=== PATIENT | female | born 1960 | race Caucasian/White ===

== ENCOUNTER → 2020-08-11 | Outpatient (CLI) | payer BC ==
--- NOTE | 2020-08-11 08:19 | RAD ---
EXAMINATION: CT abdomen and pelvis without IV contrast. INDICATION:60 years, Female, gross hematuria onset yesterday, abdominal discomfort.. TECHNIQUE: Axial CT images of the abdomen and pelvis were obtained. Coronal and sagittal reformatted performed. COMPARISON: None. Exposure: One or more of the following individualized dose reduction techniques were utilized for thi s examination: 1. Automated exposure control 2. Adjustment of the mA and/or kV according to patient size 3. Use of iterative reconstruction technique. FINDINGS: LOWER CHEST: Unremarkable ABDOMEN/PELVIS: Within limitation of noncontrast exam, Subcentimeter hypodensity in the left hepatic lobe, small to characterize. Diffuse hepatic steatosis with multifocal areas of fatty sparing adjacent to the gallbladder. Unremarkable gallbladder, biliary ducts, pancreas and adrenals. There is 0.8 cm calculus in the right renal pelvis without upstream di lation. No hydronephrosis in either kidney. Increased urine density within the urinary bladder, the [place] unit of the urine measures 36. Few sigmoid diverticulosis without diverticulitis. Normal appendix. Normal caliber abdominal aorta. N o pneumoperitoneum or ascites. No lymphadenopathy in the abdomen or pelvis by size criteria. Nonspeci fic nonenlarged retroperitoneal and pelvic lymph nodes, likely reactive. Unremarkable uterus. No susp icious adnexal masses. MUSCULOSKELETAL: Intraosseous hemangioma at L3 vertebral body. Small fat-containing umbilical hernia. No acute osseous process. IMPRESSION: 1. Mildly increased urine density within the urinary bladder, likely secondary to known hematuria. 2. Right renal pelvic 8mm nonobstructing calculus. No hydronephrosis in either kidney. 3. Other chronic/incidental findings, as described above. Electronically signed by: Eric Nielson MD (08/11/2020 8:17 AM) [id number]
== END ==
LOC: RAD 07:45
PROVIDERS: ATTEND Nurse Practitioner Family
DX: K57.30 Diverticulosis of large intestine without perforation or abscess without bleeding (principal); R31.0 Gross hematuria; K76.0 Fatty (change of) liver, not elsewhere classified
CPT/HCPCS: 74176

== ENCOUNTER → 2020-08-20 | Outpatient (CLI) | payer BC ==
--- NOTE | 2020-08-20 11:49 | RAD ---
Study: XR ABDOMEN 1V Indication: Right kidney stone. Comparison: CT abdomen/pelvis 08/11/2020 Findings: Redemonstrated 8 mm stone projecting at the expected location of the right renal pelvis. No stone is identified on the left. Several pelvic phleboliths. The bowel gas pattern is nonobstructive. Impression: No apparent change in size or location of an 8 mm stone within the right renal pelvis. Electronically signed by: ALEJANDRO ARMENTA MD (08/20/2020 11:47 AM) [facility]
== END ==
LOC: DXRAD 10:42
PROVIDERS: ATTEND Nurse Practitioner Family
DX: N20.0 Calculus of kidney (principal)
CPT/HCPCS: 74018

== ENCOUNTER → 2020-09-15 | Outpatient (CLI) | payer BC ==
--- NOTE | 2020-09-15 10:55 | RAD ---
EXAM: XR ABDOMEN 1V 09/15/2020 8:19 AM CLINICAL INDICATION: Right ureteral stone post lithotripsy COMPARISON: Abdominal radiograph 01/29/[address] abdomen and pelvis 08/11/2020 TECHNIQUE: AP supine view the abdomen FINDINGS: There is a 6 mm saccular in the region of the right renal pelvis. This is slightly decreas ed in size and more irregular in appearance than on 08/20/2020. No other urolithiasis visualized. Norm al bowel gas pattern. No acute osseous abnormality. IMPRESSION: Slightly decreased size of calculus in the right renal pelvis. Electronically signed by: Aziza Avelar MD (09/15/2020 10:52 AM) [id number]
== END ==
LOC: RAD 08:09
PROVIDERS: ATTEND Specialist
DX: N20.0 Calculus of kidney (principal)
CPT/HCPCS: 74018